=== PATIENT | male | born 1955 | race Caucasian/White ===

== ENCOUNTER 2017-12-26 16:04 | Emergency (ER) | payer MEDICARE, OTHER ==
[~2017-12-26] VITALS: Ht 177.8 cm; Wt 102.1 kg
[2017-12-26] MEDS ORDERED: ASPIRIN81 MG ORAL (16:09)
[2017-12-26] MEDS ORDERED: ESTRACE1 MG ORAL (16:09)
[2017-12-26] MEDS ORDERED: LISINOPRIL20 MG ORAL (16:09)
[2017-12-26] MEDS ORDERED: FUROSEMIDE20 M1 ORAL (16:09)
[2017-12-26] MEDS ORDERED: SPIRONOLACTONE100 MG ORAL (16:09)
[2017-12-26] MEDS ORDERED: CLOPIDOGREL75 MG ORAL (16:09)
[2017-12-26] MEDS ORDERED: ATORVASTATIN CA40 MG ORAL (16:09)
[2017-12-26 17:00] VITALS: BP 123/79
[2017-12-26 17:03] LABS: ANION GAP 11 mmol/L (5-15); BLOOD UREA NITROGEN 32 mg/dL (7-18); CALCIUM 8.2 MG/DL (8.5-10.1); CARBON DIOXIDE 24 MMOL/L (21-32); CHLORIDE 102 MMOL/L (98-107); CREATININE 1.5 MG/DL (0.55-1.30); POTASSIUM 5.1 MMOL/L (3.5-5.1); SODIUM 137 MMOL/L (136-145)
[2017-12-26 17:10] LABS: EOSINOPHILS % (AUTO) 5.5 % (0.0-3.0); HEMATOCRIT 34.6 % (42.0-52.0); HEMOGLOBIN 12.6 G/DL (14.2-18.0); LYMPHOCYTES % (AUTO) 13.8 % (20.0-45.0); MEAN CORPUSCULAR VOLUME 88 FL (80-99); MONOCYTES % (AUTO) 6.8 % (1.0-10.0); PLATELET COUNT 211 K/UL (150-450); RED BLOOD COUNT 3.92 M/UL (4.70-6.10); RED CELL DISTRIBUTION WIDTH 11.1 % (11.6-14.8); WHITE BLOOD COUNT 6.5 K/UL (4.8-10.8)
[2017-12-26 17:21] LABS: ALANINE AMINOTRANSFERASE 19 U/L (12-78); ALBUMIN 3.3 G/DL (3.4-5.0); ALBUMIN/GLOBULIN RATIO 0.8 (1.0-2.7); ALKALINE PHOSPHATASE 91 U/L (46-116); ASPARTATE AMINO TRANSFERASE 9 U/L (15-37); BILIRUBIN,TOTAL 0.3 MG/DL (0.2-1.0)
[2017-12-26 19:10] VITALS: BP 132/84
[2017-12-26] MEDS: Insulin Human Regular 100units/ml 3ml SUBQ ONE (19:48)
[2017-12-26 21:00] VITALS: BP 113/80
--- NOTE | 2017-12-26 21:47 | Emergency Room Report ---
History of Present Illness General Chief Complaint: Behavioral Complaint Source: Patient (Haritha Recinos) Present Illness HPI 52-year-old male presents to the emergency department complaining of suicidal ideations as well as an attempt earlier this afternoon. Patient endorses that he attempted to drink a cup of bleach however he only got about half a cup in his mouth before it tasted really bad and he spat it out. He states that he did not swallow any of the bleach. He reports that this occurred at 2 PM this afternoon. Patient reports 2 previous suicidal attempts in 1985 and 1988. He reports multiple psychiatric hospitalizations since 1985 estimates more than 10. Patient reports that he has had some auditory hallucinations that of been off and on over the years and are currently present. Patient reports past medical history of high blood pressure for which he takes Lasix and spironolactone for as well as diabetes which he takes metformin as well as insulin. Denies Pain,fevers, chills, rashes, open wounds or bleeding denies pain at this time. Patient denies chemical bliss in the mouth, pain with swallowing, nausea or vomiting. Reports he is a and receives psychiatric medication management by a different provider each time. Pt. also states he just moved here from [place]. He denies illicit drug use, smoking or alcohol use. (Haritha Recinos) Allergies: Coded Allergies: No Known Allergies (Unverified , 12/26/17) Patient History Past Medical History: see triage record, DM, HTN, psych hx Pertinent Family History: none Reviewed Nursing Documentation: PMH: Agreed; PSxH: Agreed (Haritha Recinos) Nursing Documentation-PMH Past Medical History: No History, Except For Hx Cardiac Problems: Yes Hx Hypertension: Yes Hx Diabetes: Yes History Of Psychiatric Problem: Yes - scydzophrenia, depression (Haritha Recinos) Review of Systems All Other Systems: negative except mentioned in HPI (Haritha Recinos) Physical Exam Vital Signs Date Time Temp Pulse Resp B/P (MAP) Pulse Ox O2 Delivery O2 Flow Rate FiO2 12/26/17 16:00 97.7 110 18 123/79 98 Room Air Sp02 EP Interpretation: reviewed, normal General Appearance: no apparent distress, alert, GCS 15, non-toxic Head: normocephalic, atraumatic Eyes: bilateral eye normal inspection, bilateral eye PERRL ENT: hearing grossly normal, normal pharynx, normal voice, uvula midline, moist mucus membranes, other - no oral lesions or evidence of chemical bliss, no erythema, normal pharynx. Neck: full range of motion Respiratory: chest non-tender, lungs clear, normal breath sounds, no respiratory distress, no wheezing, speaking full sentences Cardiovascular #1: regular rate, rhythm, no edema, normal capillary refill Gastrointestinal: normal bowel sounds, non tender, soft, non-distended Musculoskeletal: back normal, gait/station normal, normal range of motion, non- tender Neurologic: alert, oriented x3, responsive, motor strength/tone normal, sensory intact, normal gait, speech normal, grossly normal Psychiatric: judgement/insight normal, other - POSITIVE for SI, NO HI, NO SPECIFIC PLAN. normal affect. non-aggressive, normal though process, and normal memory. Skin: normal color, no rash, warm/dry, well hydrated, other - 2 small lesions in the right a/c - suspicious for IV puncture wound, no surrounding erythema or warmth. Lymphatic: no adenopathy (Haritha Recinos) Medical Decision Making PA Attestation Dr. Martell is my supervising Physician whom patient management has been discussed with. (Haritha Recinos) Diagnostic Impression: Primary Impression: Behavioral disorder ER Course 52-year-old male presents to the emergency department complaining of suicidal ideations as well as an attempt earlier this afternoon. Patient endorses that he attempted to drink a cup of bleach however he only got about half a cup in his mouth before it tasted really bad and he spat it out. He states that he did not swallow any of the bleach. He reports that this occurred at 2 PM this afternoon. Patient reports 2 previous suicidal attempts in 1985 and 1988. He reports multiple psychiatric hospitalizations since 1985 estimates more than 10. Patient reports that he has had some auditory hallucinations that of been off and on over the years and are currently present. Patient reports past medical history of high blood pressure for which he takes Lasix and spironolactone for as well as diabetes which he takes metformin as well as insulin. Denies Pain,fevers, chills, rashes, open wounds or bleeding denies pain at this time. Patient denies chemical bliss in the mouth, pain with swallowing, nausea or vomiting. Reports he is a and receives psychiatric medication management by a different provider each time. Pt. also states he just moved here from [place]. He denies illicit drug use, smoking or alcohol use. Pt has normal affect. non-aggressive, normal though process, and normal memory. Ddx considered but are not limited to OD, SI/HI, psychosis, UTI, intoxication Vital signs: are WNL, pt. is afebrile H&PE are most consistent with behavioral/mental health issue :Poison control was contacted by ED remote sensing technician Daniel. Poision control recommended basic labs, salicylate and acetaminophen level, and observation ORDERS: -CBC: mild anemia - CMP: ELEVATED GLUCOSE: 296, ELEVATED BUN 31 and Cr: 1.5, and mild elevation in AST as well -UA: negative for infection/ unremarkable see results attached. -UDS: Negative -Salicylates and Acetaminophen -WNL -Serum ETOH - No evidence of acute intoxication ED INTERVENTIONS: - Pt given 10 Units Insulin SubQ. DISPOSITION: patient is medically cleared and will be under ED observation awaiting psychiatric evaluation for final disposition. Labs Test 12/26/17 16:30 12/26/17 16:44 White Blood Count 6.5 K/UL (4.8-10.8) Red Blood Count 3.92 M/UL (4.70-6.10) Hemoglobin 12.6 G/DL (14.2-18.0) Hematocrit 34.6 % (42.0-52.0) Mean Corpuscular Volume 88 FL (80-99) Mean Corpuscular Hemoglobin 32.0 PG (27.0-31.0) Mean Corpuscular Hemoglobin Concent 36.3 G/DL (32.0-36.0) Red Cell Distribution Width 11.1 % (11.6-14.8) Platelet Count 211 K/UL (150-450) Mean Platelet Volume 6.6 FL (6.5-10.1) Neutrophils (%) (Auto) 73.0 % (45.0-75.0) Lymphocytes (%) (Auto) 13.8 % (20.0-45.0) Monocytes (%) (Auto) 6.8 % (1.0-10.0) Eosinophils (%) (Auto) 5.5 % (0.0-3.0) Basophils (%) (Auto) 1.0 % (0.0-2.0) Sodium Level 137 MMOL/L (136-145) Potassium Level 5.1 MMOL/L (3.5-5.1) Chloride Level 102 MMOL/L (98-107) Carbon Dioxide Level 24 MMOL/L (21-32) Anion Gap 11 mmol/L (5-15) Blood Urea Nitrogen 32 mg/dL (7-18) Creatinine 1.5 MG/DL (0.55-1.30) Estimat Glomerular Filtration Rate 47.6 mL/min (>60) Glucose Level 296 MG/DL (74-106) Calcium Level 8.2 MG/DL (8.5-10.1) Total Bilirubin 0.3 MG/DL (0.2-1.0) Aspartate Amino Transf (AST/SGOT) 9 U/L (15-37) Alanine Aminotransferase (ALT/SGPT) 19 U/L (12-78) Alkaline Phosphatase 91 U/L (46-116) Total Protein 7.2 G/DL (6.4-8.2) Albumin 3.3 G/DL (3.4-5.0) Globulin 3.9 g/dL Albumin/Globulin Ratio 0.8 (1.0-2.7) Salicylates Level 1.6 ug/mL (2.8-20) Acetaminophen Level < 2 MCG/ML (10-30) Serum Alcohol < 3 mg/dL Urine Opiates Screen Negative (NEGATIVE) Urine Barbiturates Screen Negative (NEGATIVE) Phencyclidine (PCP) Screen Negative (NEGATIVE) Urine Amphetamines Screen Negative (NEGATIVE) Urine Benzodiazepines Screen Negative (NEGATIVE) Urine Cocaine Screen Negative (NEGATIVE) Urine Marijuana (THC) Screen Negative (NEGATIVE) (Haritha Recinos) ER Course Patient was signed out to me. He said he was feeling depressed and vague suicidal attempt with drinking bleach. He recently relocated here from [place]. He went to the HI in [place] yesterday but said he didn't like areas as when he came here. He slept the night without any issue. Initially he was to go to a psychiatric consult way involuntarily but now said that he's not suicidal. He said he was to go home. Just want to sleep here in the hospital without having to pay for motel. (Jayme Ventura MD) EKG Diagnostic Results EP Interpretation: Dr. Ventura Rate: tachycardiac - 102 bpm Rhythm: NSR ST Segments: no acute changes ASA given to the pt in ED: No PA Scribe Text Haritha Recinos PA-C (Haritha Recinos) Last Vital Signs Date Time Temp Pulse Resp B/P (MAP) Pulse Ox O2 Delivery O2 Flow Rate FiO2 12/26/17 17:00 97.7 110 18 123/79 98 Room Air (Haritha Recinos) Status: improved (Jayme Ventura MD) Disposition: HOME, SELF-CARE Condition: Stable Signed Out To: Dr. Ventura (Haritha Recinos) Referrals: NOT CHOSEN IPA/,REFERRING (PCP) Patient Instructions: Self-Destructive Behavior Additional Instructions: Follow-up with your doctor in 7 days. Follow-up with mental health. Return if symptom worsen. Haritha Recinos Dec 26, 2017 21:47 Jayme Ventura MD Dec 27, 2017 04:15
[2017-12-26 23:20] VITALS: BP 125/66
[2017-12-27 01:30] VITALS: BP 127/79
[2017-12-27 04:32] VITALS: BP 137/81
--- NOTE | 2017-12-28 16:35 | Cardiology Report ---
APPROVED REPORT EKG Measurement Heart [id number] Sinus tachycardia Otherwise normal ECG
== END 2017-12-27 04:33 | disposition home or self-care (01) ==
LOC: EDBD 16:04 → EMR 16:38
DX: R45.851 Suicidal ideations (principal); I10 Essential (primary) hypertension; E11.9 Type 2 diabetes mellitus without complications; F32.9 Major depressive disorder, single episode, unspecified; F20.9 Schizophrenia, unspecified
CPT/HCPCS: 36415; 80053; 80307; 80329; 82962; 85025; 93005; 96374; 99284